=== PATIENT | female | born 1940 | race Caucasian/White ===

== ENCOUNTER 2017-08-12 18:44 | Emergency (ER) | payer OTHER, MEDICARE ==
[2017-08-12 18:53] VITALS: RESP 18
[2017-08-12] MEDS ORDERED: ONDANSETRON 4 MG/2 ML VIAL ONE (19:29)
[2017-08-12] MEDS ORDERED: ONDANSETRON 4 MG/2 ML VIAL IVP ONE (19:42)
[2017-08-12 19:55] LABS: % IMMATURE GRANULYOCYTES 0.4 % (0.0-1.1); ABSOLUTE IMMATURE GRANULOCYTES 0.05 10^3/uL (0.00-0.10); ADD DIFF? NO; ADD MORPH? NO; ADD SCAN? NO; ATYPICAL LYMPHOCYTE FLAG 0 (0-99); FRAGMENT RBC FLAG 0 (0-99); HEMATOCRIT 39.9 % (38.0-47.0); HEMOGLOBIN 13.9 g/dL (12.6-16.3); LEFT SHIFT FLG 0 (0-99); LIPEMIA HEMOLYSIS FLAG 90 (0-99); MEAN CELL HEMOGLOBIN 30.7 pg (27.9-34.1); MEAN CELL HEMOGLOBIN CONCENTR. 34.8 g/dL (32.4-36.7); MEAN CELL VOLUME 88.1 fL (81.5-99.8); MEAN PLATELET VOLUME 9.4 fL (8.7-11.7); PLATELET CLUMPS FLAG 0 (0-99); PLATELET COUNT 256 10^3/uL (150-400); RED BLOOD CELL COUNT 4.53 10^6/uL (4.18-5.33); RED CELL DISTRIBUTION WIDTH 12.5 % (11.5-15.2)
[2017-08-12 20:00] LABS: ANION GAP 15 mEq/L (8-16); CALCIUM 9.7 mg/dL (8.5-10.4); CARBON DIOXIDE 24 mEq/l (22-31); CHLORIDE 98 mEq/L (97-110); CREATININE 0.6 mg/dL (0.6-1.0); GLOMERULAR FILTRATION RATE > 60; GLUCOSE 175 mg/dL (70-100); POTASSIUM 3.6 mEq/L (3.5-5.2); SODIUM 137 mEq/L (134-144)
--- NOTE | 2017-08-12 20:00 | EDPHY ---
H & P Time Seen by Provider: 08/12/17 19:25 HPI/ROS: CHIEF COMPLAINT: Neck and left shoulder pain HISTORY OF PRESENT ILLNESS: Patient had neck pain starting about 1 month ago. She 1st went to [facility] and had a noncontrast head CT because she was concerned she might have recurrent intracranial aneurysm. CT was negative. She continued to have neck pain until last Tuesday when it was snowing outside she was sitting in the car and felt a sudden crack in her neck and the neck pain got worse. Over the last 1-2 weeks it has been intermittently radiating to her left shoulder and a little bit worse with movement of her left arm. No weakness or numbness in the left hand. No headache or vertigo or dizziness. REVIEW OF SYSTEMS: Eye: no change in vision ENT: no sore throat Cardiac: no chest pain or syncope Pulmonary: no cough or SOB Abdomen: No abdominal pain, but has nausea and vomiting today she thinks because of the pain. Musculoskeletal: HPI Skin: no rash Neuro: no headache Constitutional: no fever : no urinary symptoms A comprehensive 10 point review of systems is otherwise negative aside from elements mentioned in the history of present illness. PAST MEDICAL HISTORY: Diabetes, hypertension, brain aneurysm with coiling at [place] in 2007 Social history: Is General Appearance: Alert and conversant, cooperative. Eyes: No scleral icterus. ENT, Mouth: Normal mucous membranes. Respiratory: Normal respiratory effort, breath sounds equal, lungs are clear to auscultation. Cardiovascular: Regular rate and rhythm. Gastrointestinal: Abdomen is soft and non tender. Neurological: Alert and oriented x3. Normally conversant. Face symmetric, normal movement and sensation in all extremities. Good bilateral electrician strength and fluent speech. Normal biceps, triceps, wrist extensor, intrinsic, shoulder shrug, deltoid strength in left upper extremity. Skin: Warm and dry, no rashes. No zoster. Musculoskeletal: The 2 areas of very tender point palpation on the left posterior shoulder. I can rotate her shoulder without pain. Psychiatric: Not agitated. Emergency Department course/MDM: Procedure trigger point injection Indication: Myofascial pain in the left shoulder posteriorly Risk benefit alternatives discussed and consented. The 2 most painful areas 1 superiorly and 1 inferiorly in her left scapular area were palpated. Under standard sterile technique for mL is of 0.5% Marcaine without epinephrine were injected in each spot. Patient tolerated procedure well. I think that acute vascular dissection or acute coronary syndrome, venous thromboembolism or PE, or septic joint or acute infection are all unlikely. Neck pain radiating to the shoulder which is worse with movement and lasting at least a month, unlikely to be myocardial infarction. I think it is much more likely to be a acute musculoskeletal or cervical nerve root irritation. Plan for MRI of the cervical spine. Observing her in the emergency department it is pretty clear that the pain is worse with her trying to sit up in the bed. 2134: most prominent cervical disk bulge on left at C 6-7, Dr. Moreno. No cord compression or neurosurgical findings. Results discussed with the patient at this time. She will see Dr. Shobha Blevins on Tuesday. She feels better after the injection. Plan for heating pad, lidocaine patch, follow-up as outlined above. Heart rate back to normal, likely tachycardic at triage due to pain and vomiting. Normal abdominal exam, patient thought nausea and vomiting due to pain, I think likely true. Smoking Status: Never smoked Constitutional: Initial Vital Signs Temperature (C) 37.0 C 08/12/17 18:51 Heart Rate 102 H 08/12/17 18:51 Respiratory Rate 18 08/12/17 18:51 Blood Pressure 175/80 H 08/12/17 18:51 O2 Sat (%) 99 08/12/17 18:51 O2 Delivery Mode Room Air Allergies/Adverse Reactions: Sulfa (Sulfonamide Antibiotics) Allergy (Severe, Verified 02/21/10 16:33) cefaclor [From Ceclor] Allergy (Unverified 02/21/10 16:37) cefixime [From Suprax] Allergy (Unverified 02/21/10 16:37) metronidazole [From Flagyl] Allergy (Unverified 02/21/10 16:36) Metronidazole HCl [From Flagyl] Allergy (Unverified 02/21/10 16:36) Iodinated Contrast- Oral and IV Dye Adverse Reaction (Intermediate, Verified 23/08 16:34) Home Medications: Medication Instructions Recorded ATENOLOL 02/21/10 Aspirin 02/21/10 Hydrochlorothiazide 02/21/10 Lisinopril 02/21/10 SIMVASTATIN 02/21/10 metFORMIN HCL 02/21/10 Lidocaine 5% [Lidoderm 5% Patch 1 ea TD DAILY #6 patch 08/12/17 (*)] Medical Decision Making - Diagnostics Imaging Results: Imaging Impressions Cervical Spine MRI 08/12/17 19:43 Impression: 1. Disk space loss and disk and bony prominence, eccentrically towards the left , at C6-C7 result in lateral recess stenosis and left neural foraminal impingement. 2. Negative for severe canal stenosis or cord compression. 3. See above report for findings at specific levels. Results called and discussed with Kenrick Villalobos M.D., on August 12, 2017 at 2134. Differential Diagnosis: Differential considered including but not limited to musculoskeletal spasm, cervical radiculopathy, spinal cord compression, vascular dissection. - Data Points Laboratory Results: Laboratory Results 08/12/17 19:35 08/12/17 19:35 08/12/17 08/12/17 19:35 19:35 WBC 12.48 10^3/uL H 10^3/uL (3.80-9.50) RBC 4.53 10^6/uL 10^6/uL (4.18-5.33) Hgb 13.9 g/dL g/dL (12.6-16.3) Hct 39.9 % % (38.0-47.0) MCV 88.1 fL fL (81.5-99.8) MCH 30.7 pg pg (27.9-34.1) MCHC 34.8 g/dL g/dL (32.4-36.7) RDW 12.5 % % (11.5-15.2) Plt Count 256 10^3/uL 10^3/uL (150-400) MPV 9.4 fL fL (8.7-11.7) Neut % (Auto) 83.8 % H % (39.3-74.2) Lymph % (Auto) 8.9 % L % (15.0-45.0) [place] % (Auto) 6.6 % % (4.5-13.0) Eos % (Auto) 0.1 % L % (0.6-7.6) Baso % (Auto) 0.2 % L % (0.3-1.7) Nucleat RBC Rel Count 0.0 % % (0.0-0.2) Absolute Neuts (auto) 10.46 10^3/uL H 10^3/uL (1.70-6.50) Absolute Lymphs (auto) 1.11 10^3/uL 10^3/uL (1.00-3.00) Absolute Monos (auto) 0.82 10^3/uL H 10^3/uL (0.30-0.80) Absolute Eos (auto) 0.01 10^3/uL L 10^3/uL (0.03-0.40) Absolute Basos (auto) 0.03 10^3/uL 10^3/uL (0.02-0.10) Absolute Nucleated RBC 0.00 10^3/uL 10^3/uL (0-0.01) Immature Gran % 0.4 % % (0.0-1.1) Immature Gran # 0.05 10^3/uL 10^3/uL (0.00-0.10) Sodium 137 mEq/L mEq/L (134-144) Potassium 3.6 mEq/L mEq/L (3.5-5.2) Chloride 98 mEq/L mEq/L (97-110) Carbon Dioxide 24 mEq/l mEq/l (22-31) Anion Gap 15 mEq/L mEq/L (8-16) BUN 14 mg/dL mg/dL (7-23) Creatinine 0.6 mg/dL mg/dL (0.6-1.0) Estimated GFR > 60 Glucose 175 mg/dL H mg/dL (70-100) Calcium 9.7 mg/dL mg/dL (8.5-10.4) Medications Given: Discontinued Medications Lidocaine (Lidoderm 5%) 1 ea TD DAILY LOPEZ Stop: 02/08/18 21:59 Last Admin: 08/12/17 22:00 Dose: 1 ea Ondansetron HCl (Zofran) 4 mg IVP EDNOW ONE Stop: 08/12/17 19:43 Last Admin: 08/12/17 21:00 Dose: 4 mg Departure - Departure Disposition: Home, Routine, Self-Care Clinical Impression: Cervical radiculopathy, Muscle spasm Condition: Good Instructions: Muscle Spasm (ED) Referrals: Hernandez Cloud MD [Primary Care Provider] - As per Instructions Shobha Blevins MD [Medical Doctor] - 08/15/17 Prescriptions: Lidocaine 5% [Lidoderm 5% Patch (*)] 1 ea TD DAILY #6 patch
[2017-08-12 21:51] VITALS: O2SAT 95
[2017-08-12] MEDS ORDERED: LIDOCAINE 5% 1 EA PATCH TD ONE (21:57)
[2017-08-12] MEDS ORDERED: LIDOCAINE 5% 1 EA PATCH TD SCH (22:00)
[2017-08-12 22:03] VITALS: BP 188/76; PULSE 75; TEMP 98.2
[2017-08-13] MEDS ORDERED: PATCH REMOVAL 1 EA PATCH TD SCH (21:00)
== END 2017-08-12 22:20 | disposition home or self-care (01) ==
PROC: 3E023GC Introduction of Other Therapeutic Substance into Muscle, Percutaneous Approach (ICD-10-PCS; principal; 2017-08-12)
DX: M54.12 Radiculopathy, cervical region (principal); M62.838 Other muscle spasm; E11.9 Type 2 diabetes mellitus without complications; I10 Essential (primary) hypertension; Z79.82 Long term (current) use of aspirin; Z79.84 Long term (current) use of oral hypoglycemic drugs
CPT/HCPCS: 20552; 72141; 96374; 99285; J2405

== ENCOUNTER → 2017-08-21 | Outpatient (CLI) | payer OTHER, MEDICARE | LOC: FIMAGING 08:36 | PROVIDERS: ATTEND Physical Medicine & Rehabilitation | DX: M48.062 Spinal stenosis, lumbar region with neurogenic claudication (principal); M43.16 Spondylolisthesis, lumbar region; M43.17 Spondylolisthesis, lumbosacral region; M46.96 Unspecified inflammatory spondylopathy, lumbar region; M46.97 Unspecified inflammatory spondylopathy, lumbosacral region; N28.1 Cyst of kidney, acquired ==

== ENCOUNTER → 2017-09-13 | Outpatient (CLI) | payer OTHER, MEDICARE | LOC: FIMAGING 14:00 | PROVIDERS: ATTEND Family Medicine Sports Medicine | DX: Z12.31 Encounter for screening mammogram for malignant neoplasm of breast (principal) | CPT/HCPCS: G0202 ==

== ENCOUNTER → 2017-10-02 | Outpatient (CLI) | payer OTHER, MEDICARE | LOC: FIMAGING 09:26 | DX: I67.1 Cerebral aneurysm, nonruptured (principal) ==

== ENCOUNTER → 2018-10-10 | Outpatient (CLI) | payer OTHER, MEDICARE | LOC: BMCIMAGING 14:48 | PROVIDERS: ATTEND Physician Assistant | DX: Z13.820 Encounter for screening for osteoporosis (principal); M85.89 Other specified disorders of bone density and structure, multiple sites; Z78.0 Asymptomatic menopausal state ==

== ENCOUNTER → 2018-12-12 | Outpatient (CLI) | payer OTHER, MEDICARE | LOC: BHLMT 13:30 | PROVIDERS: ATTEND Internal Medicine Cardiovascular Disease | DX: R07.9 Chest pain, unspecified (principal) | CPT/HCPCS: 78452; 93017; A9500; J2785 ==

== ENCOUNTER → 2018-12-14 | Outpatient (CLI) | payer OTHER, MEDICARE | LOC: BHLMT 13:15 | PROVIDERS: ATTEND Internal Medicine Interventional Cardiology | DX: R07.9 Chest pain, unspecified (principal); E11.9 Type 2 diabetes mellitus without complications | CPT/HCPCS: 93306-PO ==